=== PATIENT | male | born 1945 | race Caucasian/White ===

== ENCOUNTER → 2023-09-15 14:19 | Outpatient (REF) | payer OTHER, SELFPAY | LOC: DHCBS HW 14:19 | PROVIDERS: ATTENDING PHYSICIAN Internal Medicine Cardiovascular Disease; FAMILY PHYSICIAN Internal Medicine | DX: R53.83 Other fatigue (principal); I25.5 Ischemic cardiomyopathy; I21.19 ST elevation (STEMI) myocardial infarction involving other coronary artery of inferior wall | CPT/HCPCS: 93306 ==

== ENCOUNTER → 2023-11-12 08:47 | Outpatient (REF) | payer OTHER, SELFPAY | LOC: PAVMRI 08:47 | PROVIDERS: ATTENDING PHYSICIAN Internal Medicine Cardiovascular Disease; FAMILY PHYSICIAN Internal Medicine | DX: I25.5 Ischemic cardiomyopathy (principal) | CPT/HCPCS: 75561; 75565; A9585 ==

== ENCOUNTER 2024-01-11 10:48 | Day surgery (SDC) | payer OTHER, SELFPAY ==
--- NOTE | 2024-01-11 09:30 | W.ICD.CONTRA ---
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
-
History of FL?: Yes
LV Function
Left ventricular function study result?: Ejection Fraction </= 35%
ACEI/ARB/ARNI
Patient already on ACEI/ARB/ARNI: Yes
Beta-Adalberto
Patient already on Beta Adalberto: Yes
[2024-01-11 11:20] VITALS: BP 144/76
[2024-01-11 11:23] VITALS: BMI 26.2
[2024-01-11 11:25] VITALS: BP 144/76
[2024-01-11 11:30] LABS: Hematocrit 50.3 % (39.0-52.0); Hemoglobin 16.2 g/dL (13.0-18.0); Mean Corp Hgb Conc. 32.2 g/dL (33.0-37.0); Mean Corpuscular Hgb 30.8 pg (27.0-31.0); Mean Corpuscular Volume 95.6 fL (80.0-94.0); Mean Platelet Volume 9.6 fL (7.4-10.4); Platelet Count 169 10^3/uL (130-400); Red Blood Cell Count 5.26 10^6/uL (4.70-6.10); White Blood Cell Count 5.9 10^3/uL (4.8-10.8)
[2024-01-11 11:35] VITALS: BP 143/70
[2024-01-11 11:35] LABS: Blood Urea Nitrogen 21 mg/dl (9-20); Carbon Dioxide 25 mmol/L (22-30); Estimated Creatinine Clearance 59 ml/min; eGFR > 60.00
[2024-01-11 12:18] LABS: Chloride 107 mmol/L (98-107); Glucose 116 mg/dl (70-99); Potassium 4.6 mmol/L (3.5-5.1); Sodium 140 mmol/L (135-145)
[2024-01-11] MEDS: VANCOCIN 200 IV (13:50)
[2024-01-11 13:54] LABS: Glucose - Point of Care 87 mg/dl (70-99)
--- NOTE | 2024-01-11 16:38 | ITS.CL.ICD ---
Shuttle[employer] - ICD
Implantable Cardioverter Defibrillator
Procedure Report:
ICD IMPLANTATION REPORT
Date of Procedure: January 03, 2024
Primary Care Provider: Dr Yg Ward
Primary tobacco packer: Dr Claus Abarca
PROCEDURES:
ICD Implant
INDICATION FOR PROCEDURE:
HFrEF NYHA Class 2-3
Duration of HF > 3 months despite guideline directed medical therapy at maximally tolerated doses
Life expectancy > 1 year.
Primary prevention
HISTORY: See office note 12/21/2023
Lidocaine with epi was used for local anesthesia. Central venous access was obtained via axillary venipuncture. An incision was made along the left chest and a pre-pectoral pocket was formed. Using a Seldinger technique and peel-away sheaths, the
pacing leads were placed under fluoroscopic guidance.
Once testing (see below) showed adequate and stable function, the leads were secured using the suture sleeves. The pocket was liberally irrigated with antibiotic solution. The leads were connected to the generator header and the leads and
generator were placed within the pocket. Fluoroscopy confirmed stable lead position. The pocket was closed in the typical fashion.
FLUOROSCOPY:
Fluoroscopy was used to guide lead placement.
CORONARY SINUS VENOGRAPHY:
The coronary sinus ostium was cannulated and venography was performed using a balloon occlusion technique.
IMPLANTS:
ICD Medtronic [id number], SN [id number], Left Pectoral
RA Medtronic 5076, SN [id number], RAA
RV Medtronic 6935, SN [id number], RV apical septum
DEVICE TESTING:
Sensing: RA 2.3 mV, RV 8 mV
Capture: RA 1.2 V@0.5ms, RV 1.2 V@0.5ms
Ohms: RA 570, RV 684
FINAL PROGRAMMING:
Yosef Pacing: MVP 60 - 130 ppm
Tachy parameters:
VF: 188 bpm, Shock
VT via VF: 188 - 240 bpm, ATP X 1, Shock
VT: 150 bpm, Monitor
COMPLICATIONS:
None
CONCLUSIONS:
Successful implant of dual chamber ICD system.
Normal function of ICD and leads at implant evaluation.
RECOMMENDATIONS:
Post op care (tele, CXR, IV abx).
In-Office wound check in 5-7 days.
Copy to: Dr Claus Abarca
--- NOTE | 2024-01-11 16:56 | PTCARENOTE ---
Rec'd Pt A,A+O s/p ICD. He was laughing and joking with staff. His at bedside. Later, Pt upset that no one told him his plan or his pain plan. Plan of care explained to Pt. He is also upset that he is not ordered a regular diet and that he
does't have an order for Percocet or something stronger for pain. Dr Andrade notified and Pt placed on regular diet. He also ordered Percocet Prn for moderate pain.
[2024-01-11] MEDS: ADDERALL 7.5 MG PO (17:55)
[2024-01-11] MEDS: TYLENOL 650 MG PO (18:17)
[2024-01-11] MEDS: NON-FORMULARY ITEM 1 UNIT PO (18:32)
[2024-01-11 19:27] VITALS: BP 130/65
[2024-01-11] MEDS: PERCOCET 5/325 2 TABLET PO (19:28)
[2024-01-11] MEDS: COREG 1.56299999999999994 MG PO (19:29)
--- NOTE | 2024-01-11 19:35 | PTCARENOTE ---
Pt c/o incisional pain, now requesting Tylenol. Med with Tylenol 650 mg for pain rated 5/10.
[2024-01-11 22:50] VITALS: BP 156/75
--- NOTE | 2024-01-12 00:04 | PTCARENOTE ---
Pt rec'd at change of shift in bed with left ant chest ICD site intact. pressure drsg and immobilizer in use. cxr completed in dept no pneumo noted.
AT HS pt's ht rate elevated despite pt in bed. ECG completed to confirm sinus with pac's. Medicated earlier with Percocet after pt stated he had no relief of pain from his ICD site with Tylenol. call ernst within reach.
[2024-01-12] MEDS: PERCOCET 5/325 2 TABLET PO ×2 (04:14→10:25)
[2024-01-12 04:18] VITALS: BP 121/65
[2024-01-12 04:43] VITALS: BMI 26.4
[2024-01-12 05:39] LABS: Blood Urea Nitrogen 22 mg/dl (9-20); Calcium 8.7 mg/dl (8.4-10.2); Carbon Dioxide 22 mmol/L (22-30); Chloride 108 mmol/L (98-107); Estimated Creatinine Clearance 54 ml/min; Glucose 130 mg/dl (70-99); Magnesium 2.2 mg/dl (1.6-2.3); Potassium 4.8 mmol/L (3.5-5.1); Sodium 139 mmol/L (135-145); eGFR > 60.00
[2024-01-12 05:42] LABS: Hematocrit 44.5 % (39.0-52.0); Hemoglobin 14.7 g/dL (13.0-18.0); Mean Corpuscular Hgb 31.3 pg (27.0-31.0); Mean Corpuscular Volume 94.7 fL (80.0-94.0); Mean Platelet Volume 10.1 fL (7.4-10.4); Platelet Count 158 10^3/uL (130-400); Red Cell Dist. Width 12.6 % (11.5-14.5); White Blood Cell Count 8.6 10^3/uL (4.8-10.8)
--- NOTE | 2024-01-12 06:25 | PTCARENOTE ---
Pt medicated with Percocet for c/o pain at pacer site. site looks good no bleeding or hematoma present. A paced on telemetry.
[2024-01-12 07:59] VITALS: BP 116/76
[2024-01-12] MEDS: NON-FORMULARY ITEM 5 UNIT PO (08:02)
[2024-01-12] MEDS: LIPITOR 5 MG PO (08:49)
[2024-01-12] MEDS: ADDERALL 7.5 MG PO (08:50)
[2024-01-12] MEDS: COREG 1.56299999999999994 MG PO (08:52)
[2024-01-12] MEDS: COZAAR 12.5 MG PO (08:53)
[2024-01-12] MEDS: JARDIANCE 25 MG PO (08:54)
[2024-01-12] MEDS: LOW STRENGTH ASPIRIN 81 MG PO (08:55)
--- NOTE | 2024-01-12 09:10 | W.PN.CARDCBS ---
Addendum entered and electronically signed by Arsen Wade MD 01/12/24 10:28:
Patient seen and examined
Agree with DAY TRADER note
Agree with DAY TRADER plan assessment
Examination:
As per DAY TRADER note
Chest x-ray reviewed with stable lead positions in the right atrium and right ventricle and ICD lead
Telemetry reviewed with appropriate atrial pacing overnight
Wound site is clean dry and intact
ECG reviewed
IMPRESSION:
CAD, prior CA w/RCA PCI (2020)
CABG x2
ICM
chronic systolic HFrEF, 33%
S/P DC ICD, 01/11/24
DM
HTN
HLD
ADD
Neuroendocrine tumor, s/p ileal resection
Pancreatic insufficiency
PLAN:
Tele- SR w/intermittent APacing, PACs
Post procedure CXR w/stable lead position, no pneumothorax
device site stable- moderate pain that was relieved with percocet- he declined tylenol when offered
Activity limitations reviewed with pt/
incision check next week at [facility]
continue other meds as before
home today
Original Note:
Today's Communication / Plan
-
incision check next week
home today
Impression / Plan
-
PCP: Lamberto Ward MD
CDY: Claus Abarca MD
78 y/o, PMH sig for IWMI w/RCA PCI (2020), prior CAB x2, ICM, chronic systolic HFrEF 33%. Presented with persistent low EF despite max singh GDMT with persistent progressive fatigue. S/P DC ICD implant.
IMPRESSION:
CAD, prior CA w/RCA PCI (2020)
CABG x2
ICM
chronic systolic HFrEF, 33%
S/P DC ICD, 01/11/24
DM
HTN
HLD
ADD
Neuroendocrine tumor, s/p ileal resection
Pancreatic insufficiency
PLAN:
Tele- SR w/intermittent APacing, PACs
Post procedure CXR w/stable lead position, no pneumothorax
device site stable- moderate pain that was relieved with percocet- he declined tylenol when offered
Activity limitations reviewed with pt/
incision check next week at [facility]
continue other meds as before
home today
Progress Note - Skin Tanner
Subjective
Date of Service: January 12, 2024
moderate incisional pain relieved with percocet
oob ambulating
Objective
Labs:
01/12/24 04:30
01/12/24 04:30
Labs
Hgb 14.7 g/dL (13.0-18.0) 01/12/24 04:30
Hct 44.5 % (39.0-52.0) 01/12/24 04:30
Plt Count 158 10^3/uL (130-400) 01/12/24 04:30
Sodium 139 mmol/L (135-145) 01/12/24 04:30
Potassium 4.8 mmol/L (3.5-5.1) 01/12/24 04:30
BUN 22 mg/dl (9-20) H 01/12/24 04:30
Creatinine 1.1 mg/dL (0.7-1.3) 01/12/24 04:30
Glucose 130 mg/dl (70-99) H 01/12/24 04:30
Vital Signs and I&O:
Vital Signs
Temp Pulse Resp BP Pulse Ox
97.4 F 63 20 121/65 98
01/12/24 07:57 01/12/24 07:30 01/12/24 07:57 01/12/24 04:18 01/12/24 07:57
Vital Signs
Temp Pulse Resp BP Pulse Ox
97.4 F 63 20 121/65 98
01/12/24 07:57 01/12/24 07:30 01/12/24 07:57 01/12/24 04:18 01/12/24 07:57
Intake & Output
01/10/24 01/11/24 01/12/24 01/13/24
06:59 06:59 06:59 06:59
Intake Total 480 / 480
Balance 480 / 480
Physical Exam
Physical Exam
AAOx3, MAEE 5/5
RRR S1 S2 no murmurs
CTA bilat, non labored
Left ACW aquacel dressing CDI, no ht/bleeding
soft abd, + bs
bilat extremities w/palpable distal pulses no edema
--- NOTE | 2024-01-12 09:49 | PTCARENOTE ---
Assumed care of pt from prev nsg shift, AAOx3 w/no c/o CP or SOB; Pt does c/o 6/10 L upper chest pain at the new ICD device insertion site. Site w/dressing C/D/I w/no signs or symptoms of bleeding or hematoma. Pt last rec'd PRN Percocet at 0414.
Advised pt when he could next have the Percocet but offered the PRN PO Tylenol as well. Pt declined the Tylenol, stating 'it does nothing for me'. Pt stated he 'would wait for the Percocet'. Pt's VS stable w/HR in the 60's at rest. Pt's HR does get
rapid in the 100'-110's when anxious. BP stable at 116/76. Pt w/call ernst within reach & no addtl needs at this time.
--- NOTE | 2024-01-12 09:52 | CM ---
Reviewed chart. Met with and Mrs. Booth to review discharge plans. He states prior to admission he resides with his spouse in a one story home with two steps to enter. He states prior to admission he was independent with ambulation and adls.
He states he does not have any DME in the home. He states he has a prescription plan and uses [facility]. The discharge plan is to return home with his spouse when medically stable.
[2024-01-12 10:48] VITALS: BP 121/58
--- NOTE | 2024-01-12 11:36 | W.DS.TRANS ---
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
-
Discharge Instructions:
Discharge Diagnosis/Procedures ICD implant
Diet Low Cholesterol,Low Sodium,Restrict fluids to 48
oz
Driving Restrictions No driving for 1 week
Bathing Restrictions OK to Shower
Specialty Instructions Weigh Daily
Instructions:
Stand-Alone Forms: DC Inst - Implanted Device
Changes to Home Medications: No
Discharge Medications:
DC Medications w/original date entered in [employer]
aspirin 81 mg chewable tablet 81 mg PO DAILY 07/08/21
atorvastatin 10 mg tablet 5 mg PO DAILY 01/11/24
carvedilol 3.125 mg tablet (Coreg) 1.563 mg PO BID 01/11/24
dextroamphetamine-amphetamine 7.5 mg tablet (Adderall) 7.5 mg PO TID 01/11/24
diazepam 5 mg tablet 5 mg PO DAILYPRN PRN anxiety 01/11/24
empagliflozin 25 mg tablet (Jardiance) 25 mg PO DAILY 01/11/24
jjmnaq-agslswih-hooxncb 3,000-10,000-14,000 unit capsule,delayed rel (Zenpep) 1 cap PO AC 01/11/24
loperamide 2 mg tablet 2 mg PO TID PRN diarrhea 01/11/24
losartan 25 mg tablet 12.5 mg PO DAILY 01/11/24
multivitamin 1 tab PO DAILY 01/11/24
vitamin B complex 1 cap PO DAILY 01/11/24
oxycodone-acetaminophen 5 mg-325 mg tablet (Percocet) 1 tab PO Q8H PRN moderate incisional pain #6 tabs 01/12/24
Home Medication Changes
Pending Results: No
--- NOTE | 2024-01-12 11:40 | PTCARENOTE ---
Pt discharged to home w/significant other providing transportation. 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 Pt escorted out via wheelchair w/staff.
== END 2024-01-12 12:30 | disposition home or self-care (01) ==
LOC: CATH 10:48
PROVIDERS: Nurse Practitioner; ATTENDING PHYSICIAN Internal Medicine Cardiovascular Disease; FAMILY PHYSICIAN Internal Medicine
DX: I11.0 Hypertensive heart disease with heart failure (principal); I50.22 Chronic systolic (congestive) heart failure; I25.5 Ischemic cardiomyopathy; I45.10 Unspecified right bundle-branch block; I25.10 Atherosclerotic heart disease of native coronary artery without angina pectoris; I25.2 Old myocardial infarction; Z95.1 Presence of aortocoronary bypass graft; Z95.5 Presence of coronary angioplasty implant and graft; E78.00 Pure hypercholesterolemia, unspecified; E11.9 Type 2 diabetes mellitus without complications; Z87.891 Personal history of nicotine dependence; Z79.82 Long term (current) use of aspirin; Z79.84 Long term (current) use of oral hypoglycemic drugs
CPT/HCPCS: 33249; C1892; 71045; 80048; 82962; 83735; 85027; 93005; C1721; C1777; C1898; Q9967

== ENCOUNTER 2024-06-14 03:56 | Inpatient (IN) | payer OTHER, SELFPAY ==
[2024-06-13 22:12] VITALS: BP 172/92
[2024-06-13 22:39] VITALS: BP 126/67
[2024-06-13 22:40] VITALS: BP 126/67
--- NOTE | 2024-06-13 22:51 | ED.GENMED ---
History of Present Illness
<MELANY Mohr - Last Filed: 06/14/24 06:03>
General
Chief Complaint: AICD Problem
Source: patient
Time Seen by Provider: 06/13/24 22:50
Nursing documentation reviewed up to this point in time: agreed with
History of Present Illness
History of Present Illness:
A 78-year-old male with a past medical history of [place] CAD, HTN, HLD, DM, CABG, AIAD implant, presents to the emergency department for a high CAD shock x 4. Patient stated that he received 2 shocks 10 minutes apart at 8 PM tonight. He also states he
received 1 shock 10 minutes after finishing a Piano concert. His last shock was 45 minutes prior to admission in the men's restroom after the concert. He received his ICD in December 2023, brand-name MedTronic. Patient states 1 prior shock 'months ago,
during my sleep'.Patient stated his ICD is programmed to deliver a shock for sustained to ventricular tachycardia. Patient incidentally admits to shortness of breath, but that is 'my normal, I have an ejection fraction of 33%'. Patient has denied
all chest pain, palpitations, difficulty breathing, abdominal pain, syncope, arm pain, jaw pain, nausea, vomiting.
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 Currently is in the process of possible recurrence.
Past History
<MELANY Mohr - Last Filed: 06/14/24 06:03>
Past History
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
ED Past Surgical History: Cardiac (Cardiac stents)
Social History
Tobacco: Non-smoker
Alcohol: None
Drug: None
Personal:
Living: with family
Employment: Employed
Review of Systems
<MELANY Mohr - Last Filed: 06/14/24 06:03>
Review of Systems
Allergies reviewed?: Yes
All Other Systems: ROS reviewed and negative except as documented in HPI and ROS
Phy Exam
<Pranav Looney [facility] - Last Filed: 06/14/24 06:03>
General Physical Exam
General Presentation: well appearing
General age: appears stated age
General Skin: warm and dry
General Habitus: normal
General Mental: alert
General Hydration: appears well hydrated
Cardiovascular Exam
Cardiovascular Exam: regular rate/rhythm, no edema, no gallop, no murmur and normal peripheral pulses
Pulmonary Exam
Pulmonary Exam: lungs clear, no respiratory distress, no rales, no crackles, no rhonchi, no wheezing and no cough
Neurological Exam
Neurological Exam: alert and oriented x3
Musculoskeletal Exam
Musculoskeletal Exam: full ROM
Skin Exam
Skin Exam: normal color, warm/dry and no rash
Psychiatric Exam
Psychiatric Exam: normal mood/affect
Course
<Pranav Looney, [facility] - Last Filed: 06/14/24 06:03>
Orders/Labs/Results
Orders:
Orders
06/13/24 22:18
Electrocardiogram (*1) Urgent
Reason for Study: Other
Other Reason for Exam: aicd problem
06/13/24 22:19
EKG- Treatment ONCE
06/13/24 22:54
pacemaker [Interrogate Pacemaker- Treatment] ONCE
06/14/24 00:53
Complete Blood Count/With Diff Urgent
Comprehensive Metabolic Panel Urgent
Magnesium Urgent
PTT Urgent
Prothrombin Time Urgent
Troponin I Urgent
06/14/24 01:00
CR Chest - 2 Views Urgent
Comment:
Reason For Exam: pacer firing
06/14/24 02:00
Amiodarone [Cordarone] 900 mg DEXTROSE 5% PVC-free BAG [D5W PVC-free BAG] 500 ml IV PER PROTOCOL
Initial Dose in mg/min:: 1
Duration of initial dose (hours):: 6
Subsequent dose in mg/min:: 0.5
Duration of subsequent dose (hours):: 18
Maximum dose in mg/min:: 1
Hold and notify provider if:: Heart rate < 60 BPM or SBP < 90 mmHg or MAP < 60 mmHg
06/14/24 03:16
Diazepam [Valium] 5 mg PO DAILYPRN PRN
06/14/24 03:17
Admit/Transfer Patient As Directed
Co-Sign Provider:
Level of Care: Inpatient admission
Assign to:: IVU
Physician / Group: hospitalist
Diagnosis: VT/VF s/p defibillation
Reason for Hospitalization: AICD defibrillation
Expected length of stay greater than two midnights?: Yes
ELOS- Estimated Length of Stay in days: 2
I certify the patient meets the requirements for IP care: Yes
PRN Pain Medication Management As Directed
May give lesser potent ordered pain med per pt: Yes
preference::
Protocol:: Medication orders for pain may be administered in a
manner that supports deferring to patient preference
when the pt is:
- Requesting an ordered lesser potent pain medication.
Least to most potent pain medications are defined
as: acetaminophen < NSAID < tramadol < opioids
(morphine, oxycodone, hydromorphone).
- Requesting a lesser dose of the same medication IF
ORDERED.
- Requesting a less intrusive route of administration
if both routes are prescribed by the provider (PO <
IV).
06/14/24 03:18
Code Status As Directed
Resuscitation Status: Full Code
06/14/24 04:26
Acetaminophen [Tylenol] 650 mg PO Q4HPRN PRN
06/14/24 04:26
Echo 2D MMode Color/Doppler Routine
Reason for Study: chest pain
CARDIOLOGY CONSULT Routine
Consulting Provider: Julio C Dueñas
Was physician already notified: Yes
Reason for consult: AICD firing for VF/VT x 4
Activity As Directed
Activity Level: With Assistance
INT (Intravenous Needle Therapy) As Directed
Comment: maintain peripheral IV access
Intake/ Output As Directed
Frequency: Per unit guidelines
Vital Signs As Directed
Frequency: q4h
Weight As Directed
Frequency: Daily
O2 Therapy [RESP] Routine
Nasal Cannula Liter Flow: 2 LPM
Titrate/Wean O2 to maintain O2 sat greater than (%): 90
Special Instructions: 2 liters/minute as needed for pulse oximetry less than 90%
DX Deep Vein Thrombosis Video Routine
06/14/24 04:49
Basic Metabolic Panel IN AM
Complete Blood Count/No Diff IN AM
Magnesium IN AM
Troponin I Q6H
Comment: at admit & Q3H for 3 total including ED draws, obtain ECG with each level
06/14/24 05:00
Electrocardiogram (*1) Q6H
Reason for Study: Chest Pain
Comment: at admission and Q3H for total of 3, to be done with each troponin
06/14/24 Breakfast
Cholesterol Lowering
At Your Request: Full Participation
Does patient need a safe tray?: No
Cholesterol Lowering: Sodium, 2 Gram
06/14/24 07:30
Pancrelipase [Zenpep Delayed Release Capsule] 1 capsule PO AC
06/14/24 08:00
Amphet Asp/Amphet/D-Amphet [Adderall] 15 mg PO BID AT 0800,1600
Aspirin Chewable [Low Strength Aspirin] 81 mg PO DAILY
Atorvastatin [Lipitor] 5 mg PO DAILY
Carvedilol [Coreg] 1.563 mg PO BID
Dapagliflozin [Farxiga] 10 mg PO DAILY
Losartan [Cozaar] 12.5 mg PO DAILY
06/14/24 11:00
Electrocardiogram (*1) Q6H
Reason for Study: Chest Pain
Comment: at admission and Q3H for total of 3, to be done with each troponin
Troponin I Q6H
Comment: at admit & Q3H for 3 total including ED draws, obtain ECG with each level
06/14/24 17:00
Troponin I Q6H
Comment: at admit & Q3H for 3 total including ED draws, obtain ECG with each level
06/14/24 18:00
Enoxaparin Sodium [Lovenox] 40 mg SC QPM
Abnormal Lab Results
06/14/24
00:53
Absolute Lymphs (auto) 1.1 L 10^3/uL
(1.2-3.4)
Absolute Monos (auto) 0.8 H 10^3/uL
(0.1-0.6)
Lymphocytes % 16.6 L %
(20.5-51.1)
Monocytes % 11.3 H %
(1.7-9.3)
Glucose 127 H mg/dl
(70-99)
Troponin I 0.457 H* ng/ml
06/14/24 00:53
06/14/24 00:53
Vital Signs
Initial and Last Documented VS:
Initial Vital Signs
Temp Pulse Resp BP Pulse Ox
98.2 F 84 19 172/92 97
06/13/24 22:12 06/13/24 22:12 06/13/24 22:12 06/13/24 22:12 06/13/24 22:12
Last Documented Vital Signs
Temp Pulse Resp BP Pulse Ox
97.4 F 69 18 132/76 97
06/14/24 04:40 06/14/24 05:30 06/14/24 04:40 06/14/24 04:39 06/14/24 04:40
<Yash Shaikh, DO - Last Filed: 06/14/24 01:10>
Orders/Labs/Results
Orders:
Orders
06/13/24 22:18
Electrocardiogram (*1) Urgent
Reason for Study: Other
Other Reason for Exam: aicd problem
06/13/24 22:19
EKG- Treatment ONCE
06/13/24 22:54
pacemaker [Interrogate Pacemaker- Treatment] ONCE
06/14/24 00:53
Complete Blood Count/With Diff Urgent
Comprehensive Metabolic Panel Urgent
Magnesium Urgent
PTT Urgent
Prothrombin Time Urgent
Troponin I Urgent
06/14/24 01:00
CR Chest - 2 Views Urgent
Comment:
Reason For Exam: pacer firing
06/14/24 02:00
Amiodarone [Cordarone] 900 mg DEXTROSE 5% PVC-free BAG [D5W PVC-free BAG] 500 ml IV PER PROTOCOL
Initial Dose in mg/min:: 1
Duration of initial dose (hours):: 6
Subsequent dose in mg/min:: 0.5
Duration of subsequent dose (hours):: 18
Maximum dose in mg/min:: 1
Hold and notify provider if:: Heart rate < 60 BPM or SBP < 90 mmHg or MAP < 60 mmHg
06/14/24 03:16
Diazepam [Valium] 5 mg PO DAILYPRN PRN
06/14/24 03:17
Admit/Transfer Patient As Directed
Co-Sign Provider:
Level of Care: Inpatient admission
Assign to:: IVU
Physician / Group: hospitalist
Diagnosis: VT/VF s/p defibillation
Reason for Hospitalization: AICD defibrillation
Expected length of stay greater than two midnights?: Yes
ELOS- Estimated Length of Stay in days: 2
I certify the patient meets the requirements for IP care: Yes
PRN Pain Medication Management As Directed
May give lesser potent ordered pain med per pt: Yes
preference::
Protocol:: Medication orders for pain may be administered in a
manner that supports deferring to patient preference
when the pt is:
- Requesting an ordered lesser potent pain medication.
Least to most potent pain medications are defined
as: acetaminophen < NSAID < tramadol < opioids
(morphine, oxycodone, hydromorphone).
- Requesting a lesser dose of the same medication IF
ORDERED.
- Requesting a less intrusive route of administration
if both routes are prescribed by the provider (PO <
IV).
06/14/24 03:18
Code Status As Directed
Resuscitation Status: Full Code
06/14/24 04:26
Acetaminophen [Tylenol] 650 mg PO Q4HPRN PRN
06/14/24 04:26
Echo 2D MMode Color/Doppler Routine
Reason for Study: chest pain
CARDIOLOGY CONSULT Routine
Consulting Provider: Julio C Dueñas
Was physician already notified: Yes
Reason for consult: AICD firing for VF/VT x 4
Activity As Directed
Activity Level: With Assistance
INT (Intravenous Needle Therapy) As Directed
Comment: maintain peripheral IV access
Intake/ Output As Directed
Frequency: Per unit guidelines
Vital Signs As Directed
Frequency: q4h
Weight As Directed
Frequency: Daily
O2 Therapy [RESP] Routine
Nasal Cannula Liter Flow: 2 LPM
Titrate/Wean O2 to maintain O2 sat greater than (%): 90
Special Instructions: 2 liters/minute as needed for pulse oximetry less than 90%
DX Deep Vein Thrombosis Video Routine
06/14/24 04:49
Basic Metabolic Panel IN AM
Complete Blood Count/No Diff IN AM
Magnesium IN AM
Troponin I Q6H
Comment: at admit & Q3H for 3 total including ED draws, obtain ECG with each level
06/14/24 05:00
Electrocardiogram (*1) Q6H
Reason for Study: Chest Pain
Comment: at admission and Q3H for total of 3, to be done with each troponin
06/14/24 Breakfast
Cholesterol Lowering
At Your Request: Full Participation
Does patient need a safe tray?: No
Cholesterol Lowering: Sodium, 2 Gram
06/14/24 07:30
Pancrelipase [Zenpep Delayed Release Capsule] 1 capsule PO AC
06/14/24 08:00
Amphet Asp/Amphet/D-Amphet [Adderall] 15 mg PO BID AT 0800,1600
Aspirin Chewable [Low Strength Aspirin] 81 mg PO DAILY
Atorvastatin [Lipitor] 5 mg PO DAILY
Carvedilol [Coreg] 1.563 mg PO BID
Dapagliflozin [Farxiga] 10 mg PO DAILY
Losartan [Cozaar] 12.5 mg PO DAILY
06/14/24 11:00
Electrocardiogram (*1) Q6H
Reason for Study: Chest Pain
Comment: at admission and Q3H for total of 3, to be done with each troponin
Troponin I Q6H
Comment: at admit & Q3H for 3 total including ED draws, obtain ECG with each level
06/14/24 17:00
Troponin I Q6H
Comment: at admit & Q3H for 3 total including ED draws, obtain ECG with each level
06/14/24 18:00
Enoxaparin Sodium [Lovenox] 40 mg SC QPM
Abnormal Lab Results
06/14/24
00:53
Absolute Lymphs (auto) 1.1 L 10^3/uL
(1.2-3.4)
Absolute Monos (auto) 0.8 H 10^3/uL
(0.1-0.6)
Lymphocytes % 16.6 L %
(20.5-51.1)
Monocytes % 11.3 H %
(1.7-9.3)
Glucose 127 H mg/dl
(70-99)
Troponin I 0.457 H* ng/ml
06/14/24 00:53
06/14/24 00:53
Vital Signs
Initial and Last Documented VS:
Initial Vital Signs
Temp Pulse Resp BP Pulse Ox
98.2 F 84 19 172/92 97
06/13/24 22:12 06/13/24 22:12 06/13/24 22:12 06/13/24 22:12 06/13/24 22:12
Last Documented Vital Signs
Temp Pulse Resp BP Pulse Ox
97.4 F 69 18 132/76 97
06/14/24 04:40 06/14/24 05:30 06/14/24 04:40 06/14/24 04:39 06/14/24 04:40
<MELANY Mohr - Last Filed: 06/14/24 06:03>
MDM/Problems Addressed
Differential Diagnosis Includes:
Myocardial infarction, atrial fibrillation, ventricular tachycardia
<MELANY Mohr - Last Filed: 06/14/24 06:03>
*Critical Care Note
Total Time (30-74mins, 75-104mins- exclusive of procedures): Not Applicable
ED Attending Note
<MELANY Mohr - Last Filed: 06/14/24 06:03>
-
Portions of this chart may have been created with voice recognition software.� Occasional wrong word or��sound alike� substitutions may have occurred due to the inherent limitations of voice recognition software.
<Yash Shaikh, DO - Last Filed: 06/14/24 01:10>
ED Attending Note
Patient seen and examined by attending physician: Yes
I performed the substantive portion of visit, reviewed & personally made and approve the management plan that is documented in note by myself or JULIO CESAR.: Yes
ED Attending Note:
This is a 78-year-old male that presents to the emergency department after having his Medtronic pacemaker defibrillator fire 4 times in the last 2 hours. He has had the pacemaker since November. He normally follows with Dr. Claus Abarca. He spoke
with Dr. Dueñas, electronic commerce specialist on-call, who advised him to come into the emergency department. Patient was seen in conjunction with the PA student. I have reviewed and agree with the history and treatment plan presented. On my independent physical
exam, patient is awake, alert, and oriented x3, minimal acute distress at this time. He is accompanied by his . Heart is regular rate and rhythm. Left chest wall has a scar where the pacemaker was implanted. It is well-healed. Skin is warm
and dry. Moves all 4 extremities. He is neurologically intact.
Vital signs are stable. Patient not hypoxic
Nursing note reviewed. I agree with nursing documentation up to this point in time.
Home Meds and allergies reviewed.
NUMBER AND COMPLEXITY OF PROBLEMS ADDRESSED AT THE ENCOUNTER
� Chronic conditions affecting care: Medtronic pacemaker defibrillator, coronary artery disease, hypertension, hyperlipidemia, lie-cuhkqkr-wdrkyfets diabetes mellitus, mesenteric neuroendocrine tumor
� Acute Exacerbation and/or Progression of Chronic Illness:ACS
� Differential Diagnosis includes: Malfunctioning pacemaker, electrolyte abnormality, sustained V. tach
AMOUNT AND/OR COMPLEXITY OF DATA TO BE REVIEWED AND ANALYZED
I performed an independent evaluation of the following and my interpretation is:
EKG: EKG shows sinus rhythm with PACs present. There is an incomplete right bundle branch block. When compared with previous EKG dated Dec, 2023, PACs and pacemaker activity has been replaced by current sinus rhythm.
Pulse Ox: Not Hypoxic
Grocery Cashier: Sinus Rhythm
CT:
X-rays:
Ultrasound:
Laboratory Studies:
Other:
Review of other/old records: Medtronic quick look II pacemaker report. Shows 6 treated V. tach episodes, greater than 20 antitachycardia pacing events, 540 J shocks, V. tach x 2, 8 nonsustained episodes with 27 SVT events.
Clinical information was obtained by an independent historian: who is present at the bedside
Prescriptions/Medications Considered but not given:
Further testing considered but not performed:
RISK OF COMPLICATIONS AND/OR MORBIDITY OR MORTALITY OF PATIENT MANAGEMENT
Social determinants of health affecting care: Good Social Support, good follow-up
Discussion with other providers: Dr. Julio C Dueñas, cardiology who recommended amiodarone drip and admission to the IVU.
Escalation of care including admission/observation vs risk of discharge considered: After being observed in the emergency department, patient is to be admitted to the hospitalist service for continued monitoring and trending
of troponins. Hospitalist is aware.
CRITICAL CARE NOTE: Not applicable
Total Time (exclusive of procedures):
Update:
Discharge Plan
Departure
Patient Disposition: Admit
Date of Disposition: 06/14/24
Time of Disposition: 01:08
Admit to: IVU
Presentation/result/management discussed w/ accepting MD/DO: Hospitalist
Discharge Problem:
Pacemaker discharge
Interventions
Interventions:
*Risk Screen - Suicide Last Done: 06/14/24 04:46
*General Assessment Last Done: 06/13/24 22:16
*Neglect/Abuse Screening Last Done: 06/13/24 22:16
ED- Fall Risk Assessment Last Done: 06/13/24 23:51
*ED COVID-19 Vaccine History Last Done: 06/14/24 04:46
*Nursing Disposition Last Done: 06/14/24 04:14
ED- Cardiac Assessment Last Done: 06/13/24 23:51
Discharge Date and Time
Discharge Date/Time: 06/14/24 04:15
[2024-06-13 23:00] VITALS: BP 121/70; BMI 27.7
[2024-06-13 23:03] VITALS: BP 146/86
[2024-06-13 23:30] VITALS: BP 116/84
[2024-06-14] VITALS (12 sets, daily range): BP systolic 107–145; BP diastolic 51–105; BMI 27.2
[2024-06-14 01:19] LABS: % Basophils 0.6 % (0-2); % Eosinophils 1.2 % (0-6); % Immature Granulocytes 0.3 % (0-0.5); % Lymphocytes 16.6 % (20.5-51.1); % Monocytes 11.3 % (1.7-9.3); Absolute Eosinophils 0.1 10^3/uL (0-0.7); Absolute Lymphocytes 1.1 10^3/uL (1.2-3.4); Absolute Monocytes 0.8 10^3/uL (0.1-0.6); Absolute Neutrophils 4.7 10^3/uL (1.4-6.5); Hematocrit 48.6 % (39.0-52.0); Hemoglobin 16.4 g/dL (13.0-18.0); Mean Corp Hgb Conc. 33.7 g/dL (33.0-37.0); Mean Corpuscular Hgb 30.4 pg (27.0-31.0); Mean Corpuscular Volume 90.2 fL (80.0-94.0); Mean Platelet Volume 9.1 fL (7.4-10.4); Nucleated Red Blood Cells % 0 % (-); Platelet Count 181 10^3/uL (130-400); Red Blood Cell Count 5.39 10^6/uL (4.70-6.10); Red Cell Dist. Width 13.3 % (11.5-14.5); White Blood Cell Count 6.6 10^3/uL (4.8-10.8)
[2024-06-14 01:31] LABS: INR 1.04; PT 13.4 Sec (11.4-14.6)
[2024-06-14 01:32] LABS: APTT 26.4 Sec (23.4-35.0)
[2024-06-14 01:45] LABS: ALT (SGPT) 18 U/L (0-50); AST (SGOT) 26 U/L (17-59); Albumin 4.4 g/dl (3.5-5.0); Alkaline Phosphatase 68 U/L (38-126); Blood Urea Nitrogen 20 mg/dl (9-20); Calcium 9.1 mg/dl (8.4-10.2); Carbon Dioxide 22 mmol/L (22-30); Chloride 106 mmol/L (98-107); Estimated Creatinine Clearance 59 ml/min; Glucose 127 mg/dl (70-99); Magnesium 2.2 mg/dl (1.6-2.3); Potassium 4.3 mmol/L (3.5-5.1); Sodium 140 mmol/L (135-145); Total Bilirubin 0.6 mg/dl (0.2-1.3); Total Protein 6.7 g/dl (6.3-8.2); eGFR > 60.00
[2024-06-14 01:46] LABS: Troponin I 0.457 ng/ml
[2024-06-14] MEDS: CORDARONE 518 MG IV (02:49)
--- NOTE | 2024-06-14 03:05 | HPS.HSE ---
Family Physician
-
Family Physician: Yg Ward
Chief Complaint
-
Defibrillator firing
History of Present Illness
This is a 78-year-old male with a past medical history of CAD status post PR, status post CABG and PCI with ischemic cardiomyopathy EF of around 35%, hypertension who presents to the emergency department after a defibrillator event.
Patient had a AICD pacemaker dual-chamber placed area this year. He said he had 1 event soon afterwards that he was unaware of because he was sleeping throughout the episode. He had been event free up until today when at around 8 PM he sensed
electric shock with pain to the left side of his chest and arm. He was preparing to play a panel consent at the time. 30 minutes later he felt a second shock. He continued to play the piano at that time and within an hour he had 2 more shocks
before coming to the emergency department. Prior to these episodes the patient reported that he has not been having any chest pain, palpitations lightheadedness or dizziness. He reported chronic mild dyspnea exertion that has not changed recently.
He said he went swimming this morning without any dyspnea on exertion or exertional chest pain. Patient denies any lower extremity edema. He denies any rapid weight gain or weight loss. There has been no acute changes to his medications. He
reports that the only change of alcohol was that it took an extra dose of loperamide. He had a recent vaccinations for COVID and flu.
In the emergency department he was afebrile with a blood pressure of 120/100, ECG showed is normal sinus rhythm at a rate of 79 with incomplete right bundle and origin from prior. Troponin was 0.457. Magnesium was 2.2 and potassium was 4.3. CBC
was all within normal limits imaging from prior. The rest of his electrolytes BUN/creatinine were likewise normal.
Medical History
Past Medical History
Past Medical History: Reports CAD
Additional Past Medical History:
Neuroendocrine tumor s/p resection
Past Surgical History: Reports Bowel Resection
Social History
Tobacco: Non-smoker
Alcohol: None
Drug: None
Personal:
Living: With Family
Employment: Employed
Family History
Family History: Not pertinent
Allergies / Home Medications
Allergies reflects when Allergies were last updated in [employer].
Home Medications with original date entered in [employer]
Allergy/Medication List:
Allergies
Allergy/AdvReac Type Severity Reaction Status Date / Time
Penicillins Allergy Rash Verified 01/11/24 11:11
Home Medications
aspirin 81 mg chewable tablet 81 mg PO DAILY 07/08/21
atorvastatin 10 mg tablet 5 mg PO DAILY 01/11/24
carvedilol 3.125 mg tablet (Coreg) 1.563 mg PO BID 01/11/24
dextroamphetamine-amphetamine 7.5 mg tablet (Adderall) 7.5 mg PO TID 01/11/24
diazepam 5 mg tablet 5 mg PO DAILYPRN PRN anxiety 01/11/24
empagliflozin 25 mg tablet (Jardiance) 25 mg PO DAILY 01/11/24
idnfzs-zksxdozg-kurnbbq 3,000-10,000-14,000 unit capsule,delayed rel (Zenpep) 1 cap PO AC 01/11/24
loperamide 2 mg tablet 2 mg PO TID PRN diarrhea 01/11/24
losartan 25 mg tablet 12.5 mg PO DAILY 01/11/24
multivitamin 1 tab PO DAILY 01/11/24
vitamin B complex 1 cap PO DAILY 01/11/24
oxycodone-acetaminophen 5 mg-325 mg tablet (Percocet) 1 tab PO Q8H PRN moderate incisional pain #6 tabs 01/12/24
Review of Systems
-
History Source: Patient
Constitutional: Reports No Symptoms
EENT: Reports No Symptoms
Respiratory: Reports No Symptoms
Cardiac: Reports Other (AICD )
Abdomen/GI: Reports No Symptoms
: Reports No Symptoms
Musculoskeletal: Reports No Symptoms
Skin: Reports No Symptoms
Neurological: Reports No Symptoms
Endocrine: Reports No Symptoms
Hematologic/Lymphatic: Reports No Symptoms
Psych: Reports No Symptoms
Physical Exam
Vital Signs
Vital Signs
Temp Pulse Resp BP Pulse Ox
98.6 F 89 25 128/105 95
06/13/24 22:40 06/14/24 01:30 06/14/24 01:30 06/14/24 01:30 06/14/24 01:30
Physical Exam
General: Well Developed, No Apparent Distress, Comfortable and Conversant
HEENT: NormoCephalic, Anicteric, Moist mucous membranes and Atraumatic
Respiratory: Clear
Cardiac: S1/S2 and Regular Rhythm
Breast: Deferred by me
GI: Soft, Non Tender, Non Distended and Normal Bowel Sounds
Rectal: Deferred by Provider
Genito-urinary: Deferred by me
Musculoskeletal: No Clubbing, No Cyanosis and No Edema
Skin: Warm
Neuro: AO x 3
Hematologic/Lymphatic: No Lymphadenopathy
Psych: Calm
Laboratory Results
-
06/14/24 00:53
06/14/24 00:53
Laboratory Results
PT 13.4 Sec (11.4-14.6) 06/14/24 00:53
INR 1.04 06/14/24 00:53
APTT 26.4 Sec (23.4-35.0) 06/14/24 00:53
Total Bilirubin 0.6 mg/dl (0.2-1.3) 06/14/24 00:53
AST 26 U/L (17-59) 06/14/24 00:53
ALT 18 U/L (0-50) 06/14/24 00:53
Alkaline Phosphatase 68 U/L (38-126) 06/14/24 00:53
Troponin I 0.457 ng/ml H* 06/14/24 00:53
Data Reviewed
-
Diagnostic Radiology: Image Personally Visualized and interpreted
Medical Tests (Nuc Med, Echo, EKG etc): Image Personally Visualized and interpreted and Report Reviewed by me
Lab Data: Labs Reviewed by me
Old Records: Reviewed
Impression/Plan
-
IMPRESSION:
Patient with history of ischemic cardiomyopathy with EF of around 35% status post AICD PPM with presents to the emergency department after multiple shocks from his AICD within the span of 2 hours. A review of the device interrogated showed shocks 5
times to terminate the VT/VF. One of the shocks failed which correlated with his sensations of 4 shocks. Patient denied chest pain prior to and after the shocks. He is currently comfortable without chest pain and dyspnea lightheadedness or
dizziness. He is euvolemic appearing. His troponin is slightly elevated at 0.45, his electrolytes are otherwise normal with a potassium of 4.3, magnesium of 2.2. Hemoglobin was normal. Chest x-ray shows no acute infiltrates.
PLAN:
1. VT/VF - Terminated by electrical defribillation from AICD. Unclear trigger but predisposed given boderline EF. No evidence of acute ischemia, electrolyte abnormality or med changes.
- admit to IVU
- amio gtt
- keep K, Mag > 4,2
- trend troponins
- echo in am
- continue asa 81, carvedilol, losartan and farxiga GDMT
- cardiology consult
DVT PPX - lovenox sq
Code status - full code
[2024-06-14 05:13] LABS: Hematocrit 46.3 % (39.0-52.0); Hemoglobin 15.9 g/dL (13.0-18.0); Mean Corp Hgb Conc. 34.3 g/dL (33.0-37.0); Mean Corpuscular Hgb 32.8 pg (27.0-31.0); Mean Corpuscular Volume 95.5 fL (80.0-94.0); Mean Platelet Volume 9.4 fL (7.4-10.4); Platelet Count 145 10^3/uL (130-400); Red Blood Cell Count 4.85 10^6/uL (4.70-6.10); Red Cell Dist. Width 13.2 % (11.5-14.5); White Blood Cell Count 5.4 10^3/uL (4.8-10.8)
[2024-06-14 05:36] LABS: Blood Urea Nitrogen 19 mg/dl (9-20); Calcium 8.8 mg/dl (8.4-10.2); Carbon Dioxide 24 mmol/L (22-30); Chloride 106 mmol/L (98-107); Estimated Creatinine Clearance 60 ml/min; Glucose 127 mg/dl (70-99); Magnesium 2.1 mg/dl (1.6-2.3); Potassium 4.3 mmol/L (3.5-5.1); Sodium 140 mmol/L (135-145); eGFR > 60.00
[2024-06-14 06:05] LABS: Troponin I 0.495 ng/ml
[2024-06-14] MEDS: ZENPEP DELAYED RELEASE CAPSULE 1 CAPSULE PO (07:22)
--- NOTE | 2024-06-14 07:36 | PTCARENOTE ---
Pt admitted to room 2242. Pt AAOx3. VSS. Pt ambulating independently in the room. Denies any pain or discomfort. Amio gtt administer through rt FA. Pt oriented to room, safety measures in place.
--- NOTE | 2024-06-14 07:51 | CON.CAR ---
Addendum entered and electronically signed by Rishabh Long MD 06/14/24 16:20:
I saw and examined the patient.
The Race Starter's note was reviewed and I agree with the note.
Comment: Briefly, 78-year-old man past medical history of ischemic cardiomyopathy with prior CABG and PCI who presented after multiple ICD shocks
Patient's ICD was interrogated, report reviewed with electrophysiology, it appears that he received ATP and multiple shocks for SVT rather than ventricular tachycardia
Plan to uptitrate beta-john for better heart rate control
Device reprogrammed to avoid inappropriate shocks
Troponin elevation is noted, peaked at 0.495
Not reporting any chest discomfort, no ECG changes and no new segmental wall motion abnormalities by echo
Overall this seems most consistent with nonischemic myocardial injury troponin elevation, possibly secondary to ICD shocks
Continue medical management of known coronary artery disease
Consideration of ischemic evaluation as an outpatient
Stable cardiac status
Outpatient cardiology follow-up arranged
Original Note:
Consultation
Consultation Request
Date/Time Consultation Performed: 06/14/24
Requesting Provider: Dr. Nur
Performing Provider: Kianna Myers PA-C for Dr. Long
Reason for Consultation: ICD shocks
Medical History
-
Chief Complaint: ICD shocks
History of Present Illness:
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
ischemic cardiomyopathy with EF approximately 30%, status post Medtronic ICD placement 12/2022. He reports shortly after ICD implantation he had an ICD shock, however it was during sleep. Since that time he has not had any shocks from his device
until yesterday. He reports he felt well yesterday morning and swam without difficulty. 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 He felt like he got punched hard in the chest with flash of light.
He then had another episode prior to going on for his performance ~15 minutes later. He then went on stage and was able to complete his performance without issue. After, he did have 2 additional shocks. He called cardiology office and was referred
to the ER. Upon device interrogation was noted to have 5 ICD shocks (one failed). Of note, also got ATP for rapid VT on 04/01/24 and was noted to have SVT in past as well.
PMH:
CAD
s/p CABG x2 RESENDZI to LAD and SVG to OM
Inferior CA s/p RCA PCI in 06/2021
occluded SVG to OM by cath 06/2021
Ischemic Cardiomyopathy, EF 25-30% by echo 08/2023
s/p Medtronic DC ICD placement 12/2022
NSVT
SVT
HLD
ADD
Exocrine pancreatic insufficiency
Neuroendocrine tumor s/p ileal resection
History of type 2 diabetes
Former smoker
Past Medical History
Past Medical History: Other (in HPI)
Social History
Tobacco: Former Smoker
Personal:
Living: With Family
Employment: Retired
Family History
Family History: Hypertension
Allergies / Home Medications
Allergy/AdvReac Type Severity Reaction Status Date / Time
Penicillins Allergy Rash Verified 01/11/24 11:11
�Medication �Instructions �Recorded �Confirmed �Type
aspirin 81 mg chewable tablet 81 mg PO DAILY 07/08/21 01/11/24 Rx
atorvastatin 10 mg tablet 5 mg PO DAILY 01/11/24 01/11/24 History
carvedilol 3.125 mg tablet (Coreg) 1.563 mg PO BID 01/11/24 01/11/24 History
dextroamphetamine-amphetamine 7.5 7.5 mg PO TID 01/11/24 01/11/24 History
mg tablet (Adderall)
diazepam 5 mg tablet 5 mg PO DAILYPRN PRN anxiety 01/11/24 01/11/24 History
empagliflozin 25 mg tablet 25 mg PO DAILY 01/11/24 01/11/24 History
(Jardiance)
xoqiix-eoaycoaj-xscvsvv 1 cap PO AC 01/11/24 01/11/24 History
3,000-10,000-14,000 unit
capsule,delayed rel (Zenpep)
loperamide 2 mg tablet 2 mg PO TID PRN diarrhea 01/11/24 01/11/24 History
losartan 25 mg tablet 12.5 mg PO DAILY 01/11/24 01/11/24 History
multivitamin 1 tab PO DAILY 01/11/24 01/11/24 History
vitamin B complex 1 cap PO DAILY 01/11/24 01/11/24 History
oxycodone-acetaminophen 5 mg-325 1 tab PO Q8H PRN moderate 01/12/24 Rx
mg tablet (Percocet) incisional pain #6 tabs
Pancrelipase 40,000 units PO 06/14/24 History
Review of Systems
-
History Source: Patient
All other systems: Negative unless noted
Physical Exam
Vital Signs
Temp Pulse Resp BP Pulse Ox
97.4 F 71 18 123/67 97
06/14/24 06:47 06/14/24 07:30 06/14/24 06:47 06/14/24 06:45 06/14/24 06:47
Lab Results
06/14/24 04:49
06/14/24 04:49
Troponin I 0.495 ng/ml H* 06/14/24 04:49
Physical Exam
General: No Apparent Distress and Comfortable
HEENT: Normocephalic, Anicteric and Moist Mucous Membranes
Respiratory: Clear and Non Labored Respirations
Cardiac: S1/S2 and Regular Rhythm
GI: Soft, Non Tender, Non Distended and Normal Bowel Sounds
Musculoskeletal: No Clubbing, No Cyanosis and No Edema
Skin: Warm and Dry
Neuro: AO x 3
Impression / Plan
-
Primary Outsole Leveler: Dr. MYESHA Abarca
Assessment:
Presentation with ICD shock x4, suspected inappropriate secondary to ATach/SVT
Elevated troponin, suspected nonischemic myocardial injury
NSVT
CAD
s/p CABG x2 RESENDIZ to LAD and SVG to OM
Inferior CA s/p RCA PCI in 06/2021
occluded SVG to OM by cath 06/2021
Ischemic Cardiomyopathy, EF 25-30% by echo 08/2023
s/p Medtronic DC ICD placement 12/2022
mod to severe MR by echo 09/15/23
HLD
ADD
Exocrine pancreatic insufficiency
Neuroendocrine tumor s/p ileal resection
History of type 2 diabetes
Former smoker
ECHO 11/20/21: Technically difficult study, Definity used, basal to mid inferior and basal inferolateral hypokinesis, probable basal septal akinesis, EF 45 to 50%, mild to moderate concentric LVH, stage I diastolic dysfunction, aortic sclerosis, trace
AR
ECHO 09/15/23: EF 25 to 30%, global hypokinesis with inferior, anterolateral, basal septal and lateral akinesis, stage I diastolic dysfunction, moderate to severe MR, trace AR
Lexiscan nuclear stress test 09/08/2023: Fixed defect in basal inferior, mid anterolateral, mid inferior lateral, mid inferior, apical lateral, apex and apical inferior segments consistent with infarction, EF 19%
Plan:
-Patient presented with ICD shock x4, initially felt to be secondary to VT, however upon further review of device interrogation, felt most likely to be Atach/SVT. patient feels performance anxiety contributed as was performing at [employer] last
evening.
-does have history of NSVT as well as SVT by prior device interrogations
-reviewed with device patient relations representative and EP
-will stop IV amiodarone. increase coreg to 3.125mg BID
-echo pending. EF 25-30% by echo 08/2023
-check TSH
-trop 0.457, 0.495. no CP. last stress from 08/2023 with results as above. initially discussed cath however likely will hold off given SVT rather than VT.
-could consider OP EP eval for ablation
-will arrange OP cardiac follow up
Data Reviewed
-
EKG: Tracing Personally Visualized and interpreted
Medical Tests (Nuc Med, Echo etc): Report Reviewed by me
Labs: Labs Reviewed by me
Old Records: Reviewed
--- NOTE | 2024-06-14 08:32 | W.PN.HOSP.TC ---
Today's Communication/Plan
-
Stop amiodarone
Increase Coreg
Assessment / Plan
Assessment / Plan
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
performance. He reported the incident to his flooring sales manager who flooring sales manager sent him to the ED. While in the ED, device interrogation reviewed 5 ICD shocks (1 failed). His ECG in the ED showed sinus rhythm with PACs.
Assessment/plan:
#SVT/A. tach
-Unknown etiology, patient reports taking Adderall (stimulant) for his ADHD which may contribute to this.
-ICD shock x 4 with current review of device interrogation.
-History of NSVT and SVT on prior device interrogations.
-Stop amiodarone per cardiology.
-TSH 5.82, free T40.89.
-Troponin peaked at 0.0495. Trend
-Refused outpatient ablation at this point.
-Cardiology appreciated.
#HFrEF
-Echo 06/14/2024 with EF 30-35% improved from 25-30%.
-GDMT with Coreg, Farxiga, losartan.
-Consider spironolactone.
# Paroxysmal atrial fibrillation
-Stop amiodarone per cardiology.
-Increase Coreg to 3.125 mg twice daily.
-Patient declined ablation.
-May require rate control eventually.
#Pancreatic insufficiency
-Continue pancrelipase
#Hyperlipidemia
-Continue atorvastatin
DVT PPX - lovenox sq
Code status - full code
Anticipated Discharge: Within 24 hours
Subjective/Interval History
-
Date of Service: June 14, 2024
Patient seen and examined. Denies chest pain, LE edema, palpitations, dyspnea, dizziness, fever and chills. He states that he has been taking stimulant for his ADHD and has been cutting it down. However, he feels anxious that he would not be able
to function without those medications.
Objective Data
-
Labs:
Laboratory Results
06/14/24 06/14/24
00:53 04:49
WBC 6.6 5.4
Hgb 16.4 15.9
Hct 48.6 46.3
Plt Count 181 145
PT 13.4
INR 1.04
APTT 26.4
Sodium 140 140
Potassium 4.3 4.3
Chloride 106 106
Carbon Dioxide 22 24
BUN 20 19
Creatinine 1.0 1.0
Glucose 127 H 127 H
Calcium 9.1 8.8
Total Bilirubin 0.6
AST 26
ALT 18
Alkaline Phosphatase 68
Vital Signs:
Vital Signs
Temp Pulse Resp BP Pulse Ox
97.4 F 71 18 123/67 97
06/14/24 06:47 06/14/24 07:30 06/14/24 06:47 06/14/24 06:45 06/14/24 06:47
Review of Systems
-
History Source: Patient
Constitutional: Reports No Symptoms; Denies Fever
Respiratory: Reports No Symptoms; Denies Trouble Breathing or Wheezing
Cardiac: Reports No Symptoms; Denies Chest Pain or Palpitations
Abdomen/GI: Reports No Symptoms; Denies Nausea or Diarrhea
Genitourinary: Reports No Symptoms
Skin: Reports No Symptoms
Physical Exam
-
General: Well Developed, No Apparent Distress and Comfortable
Respiratory: Clear to Auscultation; Negative Wheezes or Crackles
Cardiac: Regular Rhythm, S1/S2 and Irregular Rhythm; Negative Murmur or Rub
GI: Soft
Skin: Warm
Neuro: Awake, Alert, Oriented and AO x 3
Psych: Calm and Intact Judgement/Insight
Data Reviewed
-
Diagnostic Radiology: Image personally visualized and interpreted, Report Reviewed by me and Discussed with Physician
Labs: Labs Reviewed by me and Discussed with Physician
Old Records: Reviewed
[2024-06-14] MEDS: ZENPEP DELAYED RELEASE CAPSULE 5 CAPSULE PO (08:56)
[2024-06-14] MEDS: LOW STRENGTH ASPIRIN 81 MG PO (08:59)
[2024-06-14] MEDS: ADDERALL 15 MG PO ×2 (09:01→15:51)
[2024-06-14] MEDS: COREG 1.563 MG PO (09:03)
[2024-06-14] MEDS: COZAAR 12.5 MG PO (09:04)
[2024-06-14] MEDS: LIPITOR 5 MG PO (09:06)
--- NOTE | 2024-06-14 09:31 | PTCARENOTE ---
Received patient this morning sitting at the side of his bed eating breakfast and asking for his zenpep with his meal. Patient ordered 1 cap AC, however he states he takes 5 caps before meals. Patient very upset about the conflict with his dosage.
TT sent to attending, also telephoned pharmacy and had a tech come to reconcile his home med list. IV amio infusing as ordered, decreased to 0.5mg/min after 6 hours initial rate.
[2024-06-14] MEDS: FARXIGA 10 MG PO (10:34)
[2024-06-14] MEDS: COREG 1.5625 MG PO (10:50)
[2024-06-14 11:55] LABS: TSH Reflex To Free T4 5.82 uIU/ml (0.47-4.68)
[2024-06-14] MEDS: ZENPEP DELAYED RELEASE CAPSULE PO (12:12)
[2024-06-14 12:24] LABS: Free T4 0.89 ng/dl (0.78-2.19)
[2024-06-14 12:33] LABS: Troponin I 0.254 ng/ml
--- NOTE | 2024-06-14 13:08 | PTCARENOTE ---
IV amiodarone discontinued as ordered, IV line removed, new #20 placed left wrist.
--- NOTE | 2024-06-14 15:17 | CM ---
Reviewed chart. Met with and Mrs. Booth to review discharge plans. He states prior to admission he resides with his spouse in a three story home two steps to enter. He states he has a a first floor set-up. He states prior to admission he was
independent with ambulation and adls. He states he has a prescription plan and uses [facility]. Medical work-up in progress. The discharge plan is to return home with his spouse when medically stable.
--- NOTE | 2024-06-14 15:25 | W.DCSUMMARY ---
Documented by User: Adelfo Killian MD, Resident 06/14/24 16:15
Discharge Summary
Discharge Data
Date of Admission: 06/14/24
Date of Discharge: 06/14/24
-
Pending Results: No
Hospital Course
Discharging Physician : Darell Montelongo DO ;Adelfo Killian MD
Disposition : Home
Primary care physician : Yg Ward
Principal Discharge diagnosis : SVT, A. tach, HFrEF, paroxysmal A-fib, pancreatic insufficiency, hyperlipidemia, hypothyroidism
Hospital Course : 78-year-old male with PMH of CAD s/p CABG x 2, HFrEF/ischemic cardiomyopathy (LVEF 30%), inferior LA s/p RCA PCI 06/2021, s/p AICD who presented to ED overnight due to recurrent discharges from his AICD. Patient had several
shock episodes and was evaluated by his c integration assistant this a.m. who suspected inappropriate firing from the device and sent him to the ED.
While in the ED, device interrogation reviewed 5 ICD shocks (1 failed). His ECG in the ED showed sinus rhythm with PACs and it was determined that the inappropriate firing was due to SVT. Patient was admitted for further evaluation and management.
While in the hospital, patient was seen in conjunction with cardiology, and was monitored on telemetry. A repeat TTE showed LVEF of 30 to 35% with severe hypokinesis of inferolateral, inferior and anterolateral arboleda. His amiodarone was stopped
and his Coreg was increased to 3.25 twice daily. His device was also reprogrammed and patient was instructed to follow-up with cardiology outpatient for possible ablation if amenable.
Patient has been evaluated and is medically stable for discharge.
Important imaging findings :
Echocardiogram 06/14/2024:
Top normal left ventricular chamber size. Moderately reduced left ventricular
systolic function. Mild global hypokinesis with regional wall motion
abnormalities. Severe hypokinesis of the inferior, inferolateral and
anterolateral arboleda. LV ejection fraction is 30-35% by visual assessment. Mild
concentric left ventricular hypertrophy. Stage I diastolic dysfunction
suggestive of abnormal relaxation.
Mildly dilated right ventricular size. Low normal right ventricular systolic
function.
Moderate to severe mitral regurgitation.
Aortic sclerosis without stenosis.
Compared to prior study dated 09/15/2023 which was directly reviewed, left
ventricular systolic function appears slightly more vigorous, previously EF was
estimated at 25-30%.
Discharge Plan
-
Patient Disposition: Home (Routine Discharge)
Discharge Diagnosis/Procedures: SVT, A. tach, HFrEF, paroxysmal A-fib, pancreatic insufficiency, hyperlipidemia, hypothyroidism
Condition: Good
Diet: No restrictions
Activity: No restrictions
Driving Restrictions: No driving for 3 months until Cleared by cardiolog
Bathing Restrictions: None
Referrals:
Yg Ward MD [Family Provider] - in less than 1 week
Claus Abarca MD [Active] - 06/27/24 4:20 pm (You have a cardiology follow-up appointment at the [place] office. Please call with questions)
Prescriptions:
Continued
aspirin 81 MG tablet,chewable
81 mg PO DAILY 0RF
multivitamin Tablet
1 tab PO DAILY
atorvastatin 10 mg Tablet
5 mg PO DAILY
losartan 25 mg Tablet
12.5 mg PO DAILY
Jardiance 25 mg Tablet
25 mg PO DAILY
diazepam [Valium] 10 mg Tablet
5 mg PO HSPRN PRN (Reason: sleep)
Zenpep 40,000-126,000- 168,000 unit Capsule,Delayed Release(Dr/Ec)
5 cap PO AC
acetaminophen [Tylenol] 325 mg Tablet
650 mg PO Q6HPRN PRN (Reason: mild pain)
diphenoxylate-atropine [Lomotil] 2.5-0.025 mg Tablet
1 tab PO QIDPRN PRN (Reason: diarrhea)
eplerenone 25 mg Tablet
12.5 mg PO DAILY
Zenpep 40,000-126,000- 168,000 unit Capsule,Delayed Release(Dr/Ec)
3 cap PO DAILYPRN PRN (Reason: with a snack)
magnesium oxide 400 mg magnesium Tablet
400 mg PO QID
dextroamphetamine-amphetamine [Adderall] 30 mg Tablet
15 mg PO BID Qty: 0 0RF
Changed
carvedilol [Coreg] 3.125 mg Tablet
3.125 mg PO BID Qty: 30 0RF
Discharge Orders:
Discharge Patient (As Directed); Ordered 06/14/24
Ordered By: Adelfo Killian
Care Plan Goals
Care Plan Goals:
Problem: Readiness for enhanced knowledge related to diagnosis and treatment plan
Goal: Understand your diagnosis and treatment plan needs, including medications if applicable.
Instructions: Know your diagnosis, underlying causes and treatment plan options, including medications if applicable. Consult with your health care team to learn about your diagnosis and treatment plan, including medications if applicable.
Discharge Date and Time
Discharge Date/Time: 06/14/24 16:29
Print Language: MONTENEGRIN

Documented by User: Darell Montelongo DO 06/15/24 08:42
Discharge Summary
Discharge Data
Date of Admission: 06/14/24
Date of Discharge: 06/15/24
Discharge Plan
-
Patient Disposition: Home (Routine Discharge)
Discharge Diagnosis/Procedures: SVT, A. tach, HFrEF, paroxysmal A-fib, pancreatic insufficiency, hyperlipidemia, hypothyroidism
Condition: Good
Diet: No restrictions
Activity: No restrictions
Driving Restrictions: No driving for 3 months until Cleared by cardiolog
Bathing Restrictions: None
Referrals:
Yg Ward MD [Family Provider] - in less than 1 week
Claus Abarca MD [Active] - 06/27/24 4:20 pm (You have a cardiology follow-up appointment at the [place] office. Please call with questions)
Prescriptions:
Continued
aspirin 81 MG tablet,chewable
81 mg PO DAILY 0RF
multivitamin Tablet
1 tab PO DAILY
atorvastatin 10 mg Tablet
5 mg PO DAILY
losartan 25 mg Tablet
12.5 mg PO DAILY
Jardiance 25 mg Tablet
25 mg PO DAILY
diazepam [Valium] 10 mg Tablet
5 mg PO HSPRN PRN (Reason: sleep)
Zenpep 40,000-126,000- 168,000 unit Capsule,Delayed Release(Dr/Ec)
5 cap PO AC
acetaminophen [Tylenol] 325 mg Tablet
650 mg PO Q6HPRN PRN (Reason: mild pain)
diphenoxylate-atropine [Lomotil] 2.5-0.025 mg Tablet
1 tab PO QIDPRN PRN (Reason: diarrhea)
eplerenone 25 mg Tablet
12.5 mg PO DAILY
Zenpep 40,000-126,000- 168,000 unit Capsule,Delayed Release(Dr/Ec)
3 cap PO DAILYPRN PRN (Reason: with a snack)
magnesium oxide 400 mg magnesium Tablet
400 mg PO QID
dextroamphetamine-amphetamine [Adderall] 30 mg Tablet
15 mg PO BID Qty: 0 0RF
Changed
carvedilol [Coreg] 3.125 mg Tablet
3.125 mg PO BID Qty: 30 0RF
Discharge Orders:
Discharge Patient (As Directed); Ordered 06/14/24
Ordered By: Adelfo Killian
Care Plan Goals
Care Plan Goals:
Problem: Readiness for enhanced knowledge related to diagnosis and treatment plan
Goal: Understand your diagnosis and treatment plan needs, including medications if applicable.
Instructions: Know your diagnosis, underlying causes and treatment plan options, including medications if applicable. Consult with your health care team to learn about your diagnosis and treatment plan, including medications if applicable.
Discharge Date and Time
Discharge Date/Time: 06/14/24 16:29
Print Language: MONTENEGRIN
--- NOTE | 2024-06-14 16:22 | PTCARENOTE ---
Device interrogated, no ectopy on the patient's monitor, troponin level down and he would like to go home. Juma WORRELL spoke with Dr. Herrera and Dr. Andrade and is ok for discharge today. Notified attending resident that patient is ok for
discharge today. Order and instructions placed. Reviewed discharge instructions, driving restrictions and medication changes with the patient and he states his understanding. Aware of follow up cardiology appointment. Patient discharged home with
his S.O.
== END 2024-06-14 16:29 | disposition home or self-care (01) | DRG 309 ==
LOC: IVU 03:56
PROVIDERS: Student in an Organized Health Care Education/Training Program; ADMITTING PHYSICIAN Internal Medicine; ATTENDING PHYSICIAN Internal Medicine; EMERGENCY PHYSICIAN Student in an Organized Health Care Education/Training Program; FAMILY PHYSICIAN Internal Medicine; OTHER PHYSICIAN Internal Medicine Cardiovascular Disease
DX: I47.10 Supraventricular tachycardia, unspecified (principal); I50.22 Chronic systolic (congestive) heart failure; I5A Non-ischemic myocardial injury (non-traumatic); I49.01 Ventricular fibrillation; I47.20 Ventricular tachycardia, unspecified; I25.5 Ischemic cardiomyopathy; I11.0 Hypertensive heart disease with heart failure; I48.0 Paroxysmal atrial fibrillation; E78.00 Pure hypercholesterolemia, unspecified; E03.9 Hypothyroidism, unspecified; K86.81 Exocrine pancreatic insufficiency; K86.89 Other specified diseases of pancreas; D3A.8 Other benign neuroendocrine tumors; E11.9 Type 2 diabetes mellitus without complications; F41.9 Anxiety disorder, unspecified; I25.10 Atherosclerotic heart disease of native coronary artery without angina pectoris; I34.0 Nonrheumatic mitral (valve) insufficiency; Z95.810 Presence of automatic (implantable) cardiac defibrillator; Z87.891 Personal history of nicotine dependence; Z79.82 Long term (current) use of aspirin
CPT/HCPCS: 71046; 80048; 80053; 83735; 84439; 84443; 84484; 85025; 85027; 85610; 85730; 93005; 93306; 99285

== ENCOUNTER → 2024-12-04 13:51 | Outpatient (REF) | payer OTHER, SELFPAY | LOC: MRI 13:51 | PROVIDERS: ATTENDING PHYSICIAN Ophthalmology; FAMILY PHYSICIAN Internal Medicine | DX: H53.2 Diplopia (principal) | CPT/HCPCS: 70553; 76014; 76015; A9575 ==

== ENCOUNTER → 2025-01-24 13:27 | Outpatient (REF) | payer OTHER, SELFPAY | LOC: RAD 13:27 | PROVIDERS: ATTENDING PHYSICIAN Internal Medicine Cardiovascular Disease; FAMILY PHYSICIAN Internal Medicine | DX: I73.9 Peripheral vascular disease, unspecified (principal) | CPT/HCPCS: 93922; 93925 ==

== ENCOUNTER → 2025-02-01 14:58 | Outpatient (REF) | payer OTHER, SELFPAY | LOC: HWRCS 14:58 | PROVIDERS: ATTENDING PHYSICIAN Internal Medicine Cardiovascular Disease; FAMILY PHYSICIAN Internal Medicine | DX: Z95.810 Presence of automatic (implantable) cardiac defibrillator (principal); I25.10 Atherosclerotic heart disease of native coronary artery without angina pectoris | CPT/HCPCS: 93306 ==

== ENCOUNTER → 2025-02-19 08:52 | Outpatient (REF) | payer OTHER, SELFPAY | LOC: MRI 08:52 | PROVIDERS: ATTENDING PHYSICIAN Internal Medicine | DX: M54.16 Radiculopathy, lumbar region (principal) | CPT/HCPCS: 72158; 76014; 76015; A9575 ==

== ENCOUNTER → 2025-07-04 14:59 | Outpatient (REF) | payer OTHER, SELFPAY | LOC: HWRCS 14:59 | PROVIDERS: ATTENDING PHYSICIAN Internal Medicine Cardiovascular Disease; FAMILY PHYSICIAN Internal Medicine | DX: I25.5 Ischemic cardiomyopathy (principal); I25.10 Atherosclerotic heart disease of native coronary artery without angina pectoris; I11.9 Hypertensive heart disease without heart failure; I25.810 Atherosclerosis of coronary artery bypass graft(s) without angina pectoris; R06.02 Shortness of breath; R60.0 Localized edema | CPT/HCPCS: 93306 ==